=== PATIENT | male | born 1950 | race Caucasian/White ===

== ENCOUNTER 2023-08-27 08:42 | Outpatient (OUT) | payer MEDICARE, SELFPAY ==
--- NOTE | 2023-08-27 09:00 | CA_ITS ---
Patient Name: RUBEN LOUISE MR#: [id number] : 1950 Exam Date: 08/27/2023 Ordering Doctor: NATIVIDAD GAMA ECHOCARDIOGRAM REPORT PROCEDURE: CA ECHO DOPPLER COMPLETE INDICATIONS: Abnormal ECG, aortic root dilation, pacemaker COMPARISON: None. DESCRIPTION: COMPLETE ECHOCARDIOGRAM Real-time transthoracic echocardiography with 2D, M-mode, spectral and color flow Doppler performed. QUALITY: Technical quality was good. 68 , 170#, BSA 1.91 m2, BP 118/66 LEFT VENTRICLE: Normal chamber size. Normal left ventricular wall thickness. Normal systolic function. LV EF: Normal left ventricular ejection fraction, (>55%). DIASTOLIC: Grade II diastolic dysfunction. ATRIAL SEPTUM: LEFT ATRIUM: Mild dilatation. RIGHT ATRIUM: Mild dilatation. RIGHT VENTRICLE: Normal chamber size. Normal systolic function. Pacer wire present. TRICUSPID VALVE: Normal mobility and thickness. No stenosis with trivial regurgitation. Doppler studies reveal mildly (35-45) elevated right sided pressures. RVSP 39 mmHg MITRAL VALVE: Normal mobility and thickness. No evidence of mitral valve stenosis. There is no mitral annular calcification. Trivial mitral regurgitation. AORTIC VALVE: Normal trileaflet appearance. No visible sclerosis. Normal leaflet mobility. No evidence of aortic valve stenosis. No aortic regurgitation. AORTIC ROOT: Normal diameter and appearance. Dilated aortic sinuses measuring 4.2 cm (consistent with previous echocardiogram done 03/10/2021). The ascending aorta is normal in size, measuring 3.0 cm. PULMONIC VALVE: Normal thickness and mobility. No stenosis. No regurgitation. PERICARDIUM: No evidence of pericardial effusion. IVC: Not well visualized. PLEURA: CONCLUSION: 1. Normal left ventricular size and systolic function. LVEF is estimated at 55 to 60%. 2. Normal right ventricular size and systolic function. 3. Grade 2 diastolic dysfunction. 4. No significant valvular dysfunction. 5. Mildly elevated right-sided pressures. RVSP is 39 mmHg. 6. Mild biatrial dilatation. 7. Moderately dilated aortic root measuring 4.2 cm. Adult Echocardiography Procedure Report Left Ventricle LVEDD (3.7 - 5.6 cm): 4.70 cm LVESD (2.2 - 4.0 cm): 3.15 cm LVIVS thickness (0.6 - 1.2 cm): 0.92 cm LVPW thickness (0.5 - 1.0 cm): 0.87 cm e': 0.08 m/s E - e': 10.62 LVOT Max Gradient: 2.32 mm[Hg] LVOT Area (cm2): 0.76 m/s Peak Velocity (LVOT): 0.76 m/s Mean Velocity (LVOT): 0.57 m/s LVOT Diameter 2.48 cm Left Atrium LA Volume Index (2D A2C): 41.26 ml/m2 Left Atrium Systolic Dimension: 3.75 cm Mitral Valve MV E to A Ratio: 0.93 Mitral Valve A-Wave Peak Velocity: 0.89 m/s Mitral Valve E-Wave Peak Velocity: 0.83 m/s Right Ventricle Aorta AO Root Diam: 4.23 cm Ascending Ao Diam: 3.02 cm Aortic Valve AoV Area (Peak Camacho): 3.82 cm2, 3.82 cm2 AoV Area (VTI): 3.73 cm2, 3.73 cm2 Peak Velocity(Antegrade Flow): 0.97 m/s Peak Gradient(Antegrade Flow): 3.73 mm[Hg] Mean Velocity(Antegrade Flow): 0.71 m/s Mean Gradient(Antegrade Flow): 2.24 mm[Hg] Velocity Time Integral: 21.33 cm Tricuspid Valve Peak Velocity (Regurgitant Flow): 2.81 m/s Pulmonic Valve Peak Velocity: 1.44 m/s Peak Gradient: 8.29 mm[Hg] Right Atrium Right Atrium Systolic Pressure: 57.36 ml, 57.36 ml Dictated by: Mario Mercedes M.D. on 08/27/2023 at 17:24 Approved by: Mario Mercedes M.D. on 08/27/2023 at 17:33
== END 2023-08-27 08:43 | disposition home or self-care (01) ==
LOC: CARD 08:45
PROVIDERS: Family Provider Internal Medicine; PCP Internal Medicine; Visit Provider Nurse Practitioner
DX: I77.810 Thoracic aortic ectasia (principal); R94.31 Abnormal electrocardiogram [ECG] [EKG]
CPT/HCPCS: 93306

== ENCOUNTER 2024-08-03 09:45 | Outpatient (OUT) | payer MEDICARE, SELFPAY ==
--- NOTE | 2024-08-03 10:00 | CA_ITS ---
Patient Name: RUBEN LOUISE MR#: [id number] : 1950 Exam Date: 08/03/2024 Ordering Doctor: DR MARY ALICE MERCEDES M.D. ECHOCARDIOGRAM REPORT PROCEDURE: CA ECHO DOPPLER COMPLETE INDICATIONS: Aortic aneurysm, pacemaker, hypertension, diabetes COMPARISON: None. DESCRIPTION: COMPLETE ECHOCARDIOGRAM Real-time transthoracic echocardiography with 2D, M-mode, spectral and color flow Doppler performed. QUALITY: Technical quality was good. LEFT VENTRICLE: Normal chamber size. Normal left ventricular wall thickness. Normal systolic function. LV EF: Normal left ventricular ejection fraction, (>55%). DIASTOLIC: Diastolic function is indeterminate. ATRIAL SEPTUM: Visually appears intact. LEFT ATRIUM: Normal chamber size. RIGHT ATRIUM: Mild dilatation. RIGHT VENTRICLE: Normal chamber size. Normal right ventricular systolic function. Pacer wire present. TRICUSPID VALVE: Normal mobility and thickness. No stenosis with mild regurgitation. Doppler studies reveal mildly (35-45) elevated right sided pressures. RVSP 45 mmHg MITRAL VALVE: Normal mobility and thickness. No evidence of mitral valve stenosis. There is no mitral annular calcification. Trivial mitral regurgitation. AORTIC VALVE: Normal trileaflet appearance. No visible sclerosis. Normal leaflet mobility. No evidence of aortic valve stenosis. Trivial aortic regurgitation. AORTIC ROOT: Aortic root is moderately dilated (4.1 cm) consistent with echocardiogram done in 08/2023. PULMONIC VALVE: Normal thickness and mobility. No stenosis. No regurgitation. PERICARDIUM: No evidence of pericardial effusion. IVC: IVC is dilated (2.2 cm), does not collapse. PLEURA: CONCLUSION: 1. Normal left ventricular size and systolic function. LVEF is estimated at 55 to 60%. 2. Normal right ventricular size and systolic function. 3. Mild tricuspid regurgitation. 4. Mildly elevated right-sided pressures. RVSP is 45 mmHg. 5. Moderately dilated aortic root measuring 4.1 cm. Adult Echocardiography Procedure Report Left Ventricle LVEDD (3.7 - 5.6 cm): 4.67 cm LVESD (2.2 - 4.0 cm): 3.82 cm LVIVS thickness (0.6 - 1.2 cm): 1.03 cm LVPW thickness (0.5 - 1.0 cm): 1.12 cm e': 0.08 m/s E - e': 11.69 LVOT Max Gradient: 2.63 mm[Hg] LVOT Area (cm2): 0.81 m/s Peak Velocity (LVOT): 0.81 m/s Mean Velocity (LVOT): 0.51 m/s LVOT Diameter 2.48 cm Left Atrium LA Volume Index (2D A2C): 28.65 ml/m2 Left Atrium Systolic Dimension: 3.29 cm Mitral Valve MV E to A Ratio: 1.07 Mitral Valve A-Wave Peak Velocity: 0.88 m/s Mitral Valve E-Wave Peak Velocity: 0.94 m/s Right Ventricle Aorta Ascending Ao Diam: 3.20 cm Aortic Valve AoV Area (Peak Camacho): 3.34 cm2, 3.34 cm2 AoV Area (VTI): 3.33 cm2, 3.33 cm2 Peak Velocity(Antegrade Flow): 1.17 m/s Peak Gradient(Antegrade Flow): 5.47 mm[Hg] Mean Velocity(Antegrade Flow): 0.85 m/s Mean Gradient(Antegrade Flow): 3.22 mm[Hg] Velocity Time Integral: 27.26 cm Tricuspid Valve Peak Velocity (Regurgitant Flow): 2.52 m/s, 2.72 m/s Pulmonic Valve Mean Gradient: 2.48 mm[Hg] Mean Velocity: 0.71 m/s Peak Velocity: 1.23 m/s, 1.36 m/s Peak Gradient: 7.36 mm[Hg], 6.06 mm[Hg] Right Atrium Dictated by: Mary Alice Mercedes M.D. on 08/03/2024 at 12:52 Approved by: Mary Alice Mercedes M.D. on 08/03/2024 at 12:57
== END 2024-08-03 09:46 | disposition home or self-care (01) ==
LOC: CARD 09:46
PROVIDERS: Family Provider Internal Medicine; PCP Internal Medicine; Visit Provider Internal Medicine Interventional Cardiology
DX: I71.21 Aneurysm of the ascending aorta, without rupture (principal)
CPT/HCPCS: 93306